=== PATIENT | male | born 1990 | race Caucasian/White ===

== ENCOUNTER 2022-02-06 19:45 | Inpatient (IN) | payer BC ==
[~2022-02-06] VITALS: Ht 180.3 cm; Wt 83.9 kg
--- NOTE | 2022-02-06 20:04 | NUR ---
BIBS C/O GENITAL PAIN S/P BEING BITTEN BY DOG YESTERDAY. WAS TREATED WITH STITCHES YESTERDAY BUT PAIN IS UNBAREABLE. BITE TO R ARM ,L/R ABD TDAP UTD. PATIETN ALERT AND ORIENTED X3. AMBULATORY WITH NON LABORED BREATHING AWAITING MD SAUCEDO.
--- NOTE | 2022-02-06 20:05 | NUR ---
BLANCA RUIZ @ BEDSIDE
[2022-02-06] MEDS ORDERED: MORPHINE SULFATE INJ 10 MG/ML DISP.SYRIN IV ONE (20:30)
[2022-02-06] MEDS ORDERED: ONDANSETRON HCL/PF 4 MG/2 ML VIAL IV ONE (20:30)
[2022-02-06] MEDS ORDERED: PIPERACILLIN /TAZOBACTAM 3.375 G in IV D5W 50 ML IV ONE (20:30)
[2022-02-06] MEDS ORDERED: ONDANSETRON HCL/PF 4 MG/2 ML VIAL ONE (20:54)
[2022-02-06] MEDS ORDERED: MORPHINE SULFATE INJ 2 MG/ML DISP.SYRIN ONE (20:54)
[2022-02-06] MEDS ORDERED: PIPERACILLIN /TAZOBACTAM 3.375 G VIAL IV ONE (20:54)
[2022-02-06 21:04] LABS: BASOPHILS % (AUTO) 0.5 % (0.0-2.0); EOSINOPHILS % (AUTO) 3.6 % (0.0-6.0); HEMATOCRIT 46 % (39-51); HEMOGLOBIN 15.1 g/dL (13.5-17.5); LYMPHOCYTES # (AUTO) 2.3 K/uL (0.8-4.8); LYMPHOCYTES % (AUTO) 27.4 % (20.0-44.0); MEAN CORPUSCULAR HGB CONC 33 g/dl (31.0-36.0); MEAN CORPUSCULAR VOLUME 91 fL (80-96); MONOCYTES # (AUTO) 0.6 K/uL (0.1-1.30); MONOCYTES % (AUTO) 7.7 % (2.0-12.0); NEUTROPHILS % (AUTO) 60.8 % (43.0-81.0); PLATELET COUNT (AUTO) 265 K/uL (150-450); RED BLOOD CELL COUNT(AUTO) 5.03 MIL/uL (4.5-6.0); WHITE BLOOD COUNT (AUTO) 8.3 K/uL (4.3-11.0)
[2022-02-06 21:14] LABS: CALCIUM, SERUM 8.6 mg/dL (8.5-10.1); CREATININE 0.9 mg/dL (0.6-1.3); POTASSIUM 3.4 mmol/L (3.5-5.1)
[2022-02-06 21:20] LABS: ALBUMIN 3.8 g/dL (3.4-5.0); BILIRUBIN,DIRECT 0.2 mg/dL (0.0-0.2); BILIRUBIN,TOTAL 0.9 mg/dL (0.2-1.0); TOTAL PROTEIN, SERUM 7.1 g/dL (6.4-8.2)
[2022-02-06] MEDS ORDERED: POTASSIUM CHLORIDE 20 MEQ TAB.PRT.SR PO ONE ×2 (22:00→22:07)
--- NOTE | 2022-02-06 23:30 | NUR ---
report given to meghana huff for terrence
--- NOTE | 2022-02-06 23:46 | NUR ---
pt transproted [place] with emt at bedside on stable condition
[2022-02-07] VITALS: BP 106/67
[2022-02-07] MEDS ORDERED: ONDANSETRON HCL/PF 4 MG/2 ML VIAL IVP PRN (00:30)
[2022-02-07] MEDS ORDERED: Z GUARD REMEDY 4 OZ OINT TP PRN (00:30)
[2022-02-07] MEDS ORDERED: ACETAMINOPHEN 325 MG TABLET PO PRN (00:30)
[2022-02-07] MEDS ORDERED: MAG HYDROX/AL HYDROX/SIMETH 30 ML UDC PO PRN (00:30)
[2022-02-07] MEDS ORDERED: ZOLPIDEM TARTRATE 5 MG TABLET PO PRN (00:30)
[2022-02-07] MEDS ORDERED: MAGNESIUM HYDROXIDE 30 ML UDC PO PRN (00:30)
[2022-02-07] MEDS: MORPHINE SULFATE INJ 4 MG/ML DISP.SYRIN IV PRN ×2 (01:18→07:39)
[2022-02-07] MEDS ORDERED: ZOSYN IVPB 3.375 G in IV D5W 50ml IV ONE (03:00)
[2022-02-07] MEDS ORDERED: PIPERACILLIN /TAZOBACTAM 3.375 G VIAL IV ONE (03:41)
[2022-02-07] MEDS: PANTOPRAZOLE 40 MG TABLET.DR PO SCH (07:38)
--- NOTE | 2022-02-07 07:57 | NUR ---
MS RN OPENING NOTE Patient in bed, awake. A/O x 4, able to make needs known. On room air, breathing evenly and unlabored. No SOB or s/s of distress noted. IV access on RAC #20, SL intact and patent. Patient complained of pain on his scrotum 06/12, PRN Morphine given at 0739. Safety precautions in place: bed in low, locked position; siderails up x 2; call light within reach. Will continue to monitor.
[2022-02-07 08:00] VITALS: BP 120/77
[2022-02-07] MEDS ORDERED: HYDROCODONE/APAP 5/325MG TABLET PO PRN (11:00)
[2022-02-07] MEDS: HYDROCODONE/APAP 10/325MG TABLET PO PRN ×3 (11:26→22:33)
[2022-02-07] MEDS: PIPERACILLIN /TAZOBACTAM 3.375 G in IV D5W 100 ML IV SCH ×2 (12:37→21:05)
--- NOTE | 2022-02-07 14:52 | NUR ---
SS Consult: SS consult requested for homelessness. The pt. is a 31 year old male admitted to Med Surg due to a dog bite & intense pain per EMR. MARYCRUZ met with pt. bedside. The pt. is awake, alert and makes good eye contact. The pt. has bruised left eye and would to his right arm. Pt. appears well-groomed, makes good eye contact.Per pt. he resides at "[facility]" [[address] [place] [id number]; [phone]]. Pt stated that he and one of his roommates were play wrestling and another roommates dog began to attack them. SW explored pt.s drug & ETOH use. Pt. denies drug or alcohol use. MARYCRUZ explored pt.s mental health Hx. Pt. stated he has been diagnosed with anxiety & depression and is currently on Wellbutrin and Lexapro. Pt. subha SI/HI and denies hallucinations. pt is ambulatory & independent with all his ADL's. DC PLAN: Per pt. he would like to return to [facility] [[facility] [address]; [phone]] when ready for discharge. Per pt. facility has stated that they will ensure the dog is not living in the house to ensure the patient's safety and the safety of the their residents. SW notified patient that he can make a police report regarding the dog bite. pt. expressed understanding. Pt. signed homeless waiver & it was placed int he pt.'s chart. MARYCRUZ provided pt. with the following resources: Year-round shelters: [place] [facility] [address] [place] [place] [address] ; [facility] [address] [place] [address]; [facility] Olidcqv2547 [facility] [address] Winter Shelters: SPA 2 | [facility] Gracia: Derek [place] Address: Confidential (call for location ) Population Served: Coed # of Beds: 57 SPA 4 | [facility] Provider: [facility] Address: [address] [place] [address] # of Beds: 49 Population Served: Coed SPA 6 | [facility] Provider: [facility] Address: [address] [facility] [address] # of Beds: 49 Population Served: Coed [facility] Provider: Sunil Arenas DCD Address: [address] [facility] [address] # of Beds: 20 Population Served: Women SOULEYMANE Facility Provider: [facility] Address: [address] [facility] [address] # of Beds: 30 Population Served: Women SPA 8 | [facility] Provider: [place] shukla Jennifer Address: [address] [facility] [address] # of Beds: 65 Population Served: Coed Hygiene: [place] [facility]: [address] [facility] ; [facility] [address] [facility] ; [facility] [address] [facility] [place] . Food Resources: [place] [facility] at [facility]- [address] [facility]; Meet Each Need with Dignity ([facility]) [address] [facility]; [facility] 6[address] [facility]; [facility] 8563 [facility]. Mental Health resources provided: [facility] [address] [place] [address] ; [facility] [address] [facility] [address], [place] [address] ; Maryse Beal [facility] [address] [place] [address] ; [facility] [address] [place] [address] Healthcare Clinics: [facility] [address] [facility], [address] [place]. [place] ; [facility] [address] [facility] [address] [place] [address]; [facility] [place] [address] [place] [address] [phone]) [phone] Counseling--Outpatient [facility] [address] [facility], [place] [address] (Specializes in in-depth psychotherapy for emotional distress: anxiety, depression, interpersonal conflicts, life transitions, childhood abuse) [facility] [address] [place] [address] (Assist with solving problem marital difficulties, separation & divorce, aging parents, & grief, chronic & terminal illness) [facility] [address] [place] [address] (Deal with loss & grief, anxiety, marital difficulties) Homebound/Mental Health Services [address] [facility] [address] [place] [address] (Provide in-home mental services to people who are incapable of leaving their homes) [facility] of [facility] Elderly Senior [facility] [address] [facility] [place] [address] [facility] [address] [place], [place] [address] PSYCHIATRIC OUTPATIENT SERVICES [facility] Partial Hospitalization and Intensive Outpatient Program (Managed Care and [place] Only)[address] [place] Jamie. [facility] [phone] [facility] Partial Hospitalization and Outpatient Lznabal[address]383 [facility] [address] [place], [place] [phone] [facility] Cnp[address] [facility] [address] [place], [place] [phone] [facility] Partial Hospitalization and Outpatient Nplwwoj83347 [place], [phone] Substance Abuse resources provided included: [facility] Substance Abuse Self-Helpline ([facility]) ; [facility] [address] [facility]. [place] [address] ; [facility] [place] [address] [facility] [address] ; [facility] [address] [place] [facility]. [place] [phone] ; [facility] [address] [facility] [phone] ; [facility] [address] [facility] [address] ; [facility] [address] [facility] [phone] ; [facility] Substance Abuse Helpline([facility])-[facility] ; [facility] ; [facility]; [facility] [place]; [facility] [place]; [facility] Bertrand [place]; [place] [facility] [place]; [facility] [place]; [facility] [place]; [facility] [place]; Alcoholics Anonymous -SFV; Rq-Lgep-Nefackg ; Marijuana Anonymous -[facility]; Narcotics Anonymous www.na.org;
[2022-02-07 16:00] VITALS: BP 123/65
--- NOTE | 2022-02-07 18:56 | NUR ---
MS RN CLOSING NOTE Patient in bed, resting. A/O x 4, able to make needs known. Stable on room air, breathing evenly and unlabored. No SOB or s/s of distress noted. IV access on RAC #20, SL intact and patent. Due meds given. All needs attended to. Multiple wounds kept clean and dry. Safety precautions maintained: bed in low, locked position; siderails up x 2; call light within reach. Will endorse to raise drill operator nurse for KRISTIN.
--- NOTE | 2022-02-07 19:29 | NUR ---
MS RN OPENING NOTES: RECEIVED PATIENT AWAKE IN BED, BED IN LOW POSITION, CALL LIGHTS WITHIN REACH, NO COMPLAIN OF PAIN AND DISCOMFORT AT THIS TIME, PATIENT I IS A/O X4 ABLE TO MAKE NEEDS KNOWN, AMBULATORY,WITH IV LINE AT RAC#20SL, ON ROOM AIR SATURATING WELL, PATIENT KEPT CLEAN AND DRY ALL NEEDS MET WILL CONTINUE TO MONITOR,
[2022-02-07 20:00] VITALS: BP 130/74
[2022-02-08] MEDS: PIPERACILLIN /TAZOBACTAM 3.375 G in IV D5W 100 ML IV SCH ×2 (05:07→13:06)
--- NOTE | 2022-02-08 06:51 | NUR ---
MS RN CLOSING NOTES: PATIENT SLEEP IN BED COMFORTABLY, BED IN LOW POSITION, CALL LIGHTS WITHIN REACH, NO COMPLAIN OF PAIN AND DISCOMFORT AT THIS TIE, PATIENT IS A/OX4 AMBULATORY AND ABLE TO MAKE NEEDS KNOWN ON ROOM AIR SATURATING WELL, PATIENT HAS IV LINE AT RAC#20 SL PATIENT KEPT CLEAN AND DRY ALL NEEDS MET ENDORSE TO INCOMING SHIFT.
[2022-02-08 06:54] LABS: BASOPHILS # (AUTO) 0.1 K/uL (0.0-0.2); BASOPHILS % (AUTO) 0.9 % (0.0-2.0); EOSINOPHILS % (AUTO) 7.2 % (0.0-6.0); HEMATOCRIT 44 % (39-51); HEMOGLOBIN 14.7 g/dL (13.5-17.5); LYMPHOCYTES # (AUTO) 3.1 K/uL (0.8-4.8); LYMPHOCYTES % (AUTO) 44.7 % (20.0-44.0); MEAN CORPUSCULAR HGB CONC 33 g/dl (31.0-36.0); MEAN CORPUSCULAR VOLUME 92 fL (80-96); MONOCYTES # (AUTO) 0.6 K/uL (0.1-1.30); MONOCYTES % (AUTO) 8.7 % (2.0-12.0); NEUTROPHILS # (AUTO) 2.7 K/uL (1.8-8.9); NEUTROPHILS % (AUTO) 38.5 % (43.0-81.0); PLATELET COUNT (AUTO) 255 K/uL (150-450); RED BLOOD CELL COUNT(AUTO) 4.83 MIL/uL (4.5-6.0)
[2022-02-08 07:27] LABS: ALBUMIN 3.4 g/dL (3.4-5.0); BILIRUBIN,TOTAL 0.6 mg/dL (0.2-1.0); CALCIUM, SERUM 8.8 mg/dL (8.5-10.1); CREATININE 0.9 mg/dL (0.6-1.3); MAGNESIUM 2.5 mg/dL (1.8-2.4); PHOSPHORUS 4.9 mg/dL (2.5-4.9); POTASSIUM 3.9 mmol/L (3.5-5.1); TOTAL PROTEIN, SERUM 6.8 g/dL (6.4-8.2)
--- NOTE | 2022-02-08 07:38 | NUR ---
MS RN OPENING NOTE Patient in bed, asleep. A/O x 4. On room air, breathing evenly and unlabored. No SOB or s/s of distress noted. IV access on RAC #20, SL intact and patent. Safety precautions in place: bed in low, locked position; siderails up x 2; call light within reach. Will continue to monitor.
[2022-02-08] MEDS: PANTOPRAZOLE 40 MG TABLET.DR PO SCH (07:52)
[2022-02-08 07:53] VITALS: BP 113/62
[2022-02-08] MEDS ORDERED: HYDR-3972 PO (08:11)
[2022-02-08] MEDS ORDERED: BACI28.433 TP (08:11)
[2022-02-08] MEDS ORDERED: ZOLP10TA2 PO (08:11)
[2022-02-08] MEDS ORDERED: AMOX-430 PO (08:11)
--- NOTE | 2022-02-08 08:12 | NUR ---
WOUND CARE CONSULT: PT REFUSED SKIN ASSESSMENT, THEN ALLOWED LIMITED ASSESSMENT. REVIEWED PHOTOS FROM ADMISSION AND SPOKE WITH DNP AND RN. RECOMMENDATIONS MADE FOR SKIN PROTECTION AND WOUND CARE. DISCUSSED WITH NURSING STAFF AND DNP.
[2022-02-08] MEDS: NEOMY SULF/BACITRAC ZN/POLY 15 GM TUBE TP SCH ×2 (10:10→17:17)
[2022-02-08 16:02] VITALS: BP 117/68
--- NOTE | 2022-02-08 18:16 | NUR ---
DISCHARGE NOTE Received order for discharge. Patient is A/O x 4, able to make needs known. Stable on room air, breathing evenly and unlabored. No SOB or s/s of distress noted. Discharge instructions given, verbally and in written form, patient verbalized understanding. Denies any pain and discomfort at this moment. All belongings accounted for, belonging sheet signed. IV access removed, catheter tip intact. Pressure dressing applied, no signs of bleeding noted. Photos of wounds and bruises taken and placed in chart. Patient left in stable condition via private car.
== END 2022-02-08 18:00 | DRG 730 ==
LOC: ER 19:53 → MED 23:30 → EDBD 23:30 → MED 23:57
PROVIDERS: ADMIT Hospitalist; ATTEND Nurse Practitioner Acute Care
DX: S31.35XA Open bite of scrotum and testes, initial encounter (principal); W54.0XXA Bitten by dog, initial encounter; Y92.9 Unspecified place or not applicable; S31.151A Open bite of abdominal wall, left upper quadrant without penetration into peritoneal cavity, initial encounter; N49.2 Inflammatory disorders of scrotum; S41.151A Open bite of right upper arm, initial encounter; Z20.822 Contact with and (suspected) exposure to COVID-19; E87.6 Hypokalemia; F32.A Depression, unspecified; F12.90 Cannabis use, unspecified, uncomplicated; I86.1 Scrotal varices; S31.31XA Laceration without foreign body of scrotum and testes, initial encounter
CPT/HCPCS: 36415; 76870-TC; 80048-TC; 80053-TC; 80076-TC; 83735-TC; 84100-TC; 85025-TC; 87081-TC; A6403; C9803; G0378; J2270; J2405; J2543; J7050; J7060

== ENCOUNTER 2022-04-09 02:03 | Emergency (ER) | payer BC ==
[~2022-04-09] VITALS: Ht 175.3 cm; Wt 70.3 kg
[~2022-04-09 02:03] MED LIST: AMOX-430 PO; BACI28.433 TP; HYDR-3972 PO; ZOLP10TA2 PO
--- NOTE | 2022-04-09 02:25 | NUR ---
BIBS C/O R ARM SWELLING/PAIN. ALSO C/O "BLACK SPOTTING/SWELLING ON GENITALS AREA". PATIENT ALERT AND ORIENTED X3. AMBULATORY WITH NON LABORED BREATHING IN BED 03 AWAITING MD SAUCEDO.
[2022-04-09 03:00] LABS: BASOPHILS # (AUTO) 0.1 K/uL (0.0-0.2); BASOPHILS % (AUTO) 0.6 % (0.0-2.0); HEMATOCRIT 36 % (39-51); LYMPHOCYTES # (AUTO) 2.2 K/uL (0.8-4.8); LYMPHOCYTES % (AUTO) 24.3 % (20.0-44.0); MEAN CORPUSCULAR HGB CONC 34 g/dl (31.0-36.0); MEAN CORPUSCULAR VOLUME 93 fL (80-96); MONOCYTES # (AUTO) 0.7 K/uL (0.1-1.30); MONOCYTES % (AUTO) 7.3 % (2.0-12.0); NEUTROPHILS # (AUTO) 5.8 K/uL (1.8-8.9); NEUTROPHILS % (AUTO) 62.8 % (43.0-81.0); PLATELET COUNT (AUTO) 343 K/uL (150-450); RED BLOOD CELL COUNT(AUTO) 3.84 MIL/uL (4.5-6.0); WHITE BLOOD COUNT (AUTO) 9.2 K/uL (4.3-11.0)
--- NOTE | 2022-04-09 03:30 | NUR ---
CYBER ENGINEER AT BEDSIDE
[2022-04-09 04:12] LABS: CALCIUM, SERUM 8.1 mg/dL (8.5-10.1); POTASSIUM 3.8 mmol/L (3.5-5.1)
--- NOTE | 2022-04-09 04:17 | NUR ---
PT BEING TRANSPORTED TO [facility]IA [facility]
[2022-04-09] MEDS ORDERED: IOHEXOL-300 100 ML VIAL IV ONE ×2 (04:19→04:40)
--- NOTE | 2022-04-09 04:30 | NUR ---
PT RETURNED FROM CT SCAN
[2022-04-09] MEDS ORDERED: IV NS 0.9% 250 ML IV ONE (04:41)
[2022-04-09 04:44] VITALS: BP 133/76
[2022-04-09] MEDS ORDERED: IV NS 0.9% 1,000 ML IV PRN ×2 (05:30)
[2022-04-09] MEDS ORDERED: CEPH250C PO (06:35)
[2022-04-09] MEDS ORDERED: IBUP-1957 PO (06:35)
[2022-04-09] MEDS ORDERED: KETOROLAC TROMETHAMINE 15 MG/ML VIAL ONE (06:35)
--- NOTE | 2022-04-09 06:45 | NUR ---
IV LINE REMOVED PER PATIENT REQUEST. MADE AWARE.
--- NOTE | 2022-04-09 06:53 | NUR ---
Patient eloped from facility. ER MD notified.
[2022-04-09] MEDS ORDERED: KETOROLAC TROMETHAMINE INJ 30 MG/ML VIAL IV ONE (07:00)
== END 2022-04-09 07:01 | disposition left against medical advice (07) ==
LOC: ER 02:03
DX: I86.1 Scrotal varices (principal); M62.82 Rhabdomyolysis; M79.89 Other specified soft tissue disorders; F17.200 Nicotine dependence, unspecified, uncomplicated; Z79.899 Other long term (current) drug therapy
CPT/HCPCS: 36415; 73201; 76870; 80048; 82550; 82553; 85025; 96361; 96374; 99285; J1885; J7030; J7050; Q9967 ×2

== ENCOUNTER 2022-07-24 13:51 | Emergency (ER) | payer BC ==
[~2022-07-24] VITALS: Ht 180.3 cm; Wt 90.7 kg
[~2022-07-24 13:51] MED LIST changes: +CEPH250C PO; +IBUP-1957 PO
[2022-07-24] MEDS ORDERED: KETOROLAC TROMETHAMINE INJ 30 MG/ML VIAL IM ONE (14:30)
[2022-07-24] MEDS ORDERED: KETOROLAC TROMETHAMINE INJ 30 MG/ML VIAL ONE (14:38)
[2022-07-24 14:48] VITALS: BP 121/72
[2022-07-24] MEDS ORDERED: CYCL5TAB PO (15:17)
[2022-07-24] MEDS ORDERED: KETO10TA2 PO (15:17)
== END 2022-07-24 15:33 | disposition home or self-care (01) ==
LOC: ER 13:55
DX: M25.511 Pain in right shoulder (principal); F17.200 Nicotine dependence, unspecified, uncomplicated; Z60.2 Problems related to living alone; Z79.899 Other long term (current) drug therapy
CPT/HCPCS: 99283; 96372; 73030; J1885